=== PATIENT | male | born 1940 | race Caucasian/White ===

== ENCOUNTER 2017-01-02 06:19 | Day surgery (SDC) | payer OTHER ==
[2016-12-31 14:54] LABS: HEMOGLOBIN 12.2 g/dL (14.0-18.0); MCH 27.5 PG (27-31); MCHC 32.1 g/dL (33-37); MCV 85.8 FL (81-99); MPV 9.1 FL (7.4-10.4); RBC 4.43 XMIL (4.7-6.1)
[2016-12-31 15:32] LABS: CALCIUM 9.6 mg/dL (8.8-10.2); POTASSIUM 4.6 mmol/L (3.5-5.1)
--- NOTE | 2016-12-31 15:37 | EKG Report ---
Test Performed on : 12/31/2016 2:45:15 PM Test Reason : PAT Blood Pressure : / mmHG Vent. Rate : 072 BPM Atrial Rate : 072 BPM P-R Int : 168 ms QRS Dur : 104 ms QT Int : 388 ms P-R-T Axes : 035 -32 015 degrees QTc Int : 424 ms Normal sinus rhythm. Left axis deviation Cannot rule out Anterior infarct , age undetermined Abnormal ECG When compared with ECG of 14-APR-2014 19:17, No significant change was found Confirmed by Maryanne GRIER, Wilfredo Orosco ([id number]) on 12/31/2016 5:25:06 PM
--- NOTE | 2017-01-01 19:07 | HISTORY AND PHYSICAL ---
CHIEF COMPLAINT: Elevated PSA. HISTORY OF PRESENT ILLNESS: This 76-year-old male has a history of elevated PSA to 4.69 on routine physical. A recheck was 4.53 with a 4K score of 19%. This is intermediate risk for prostate cancer. This has never occurred before. He has never had a prostate biopsy before. An attempt was made to do a prostate biopsy in the office but he could not tolerate the probe going through his rectum. He denies any history of hematuria or problems with urinary tract infections. He passed a kidney stone about 20 years ago. PAST MEDICAL HISTORY: Diabetes, hypertension, elevated cholesterol. CURRENT MEDICATIONS: Flomax 0.4 mg a day. Losartan 25 mg a day. Metformin 1000 mg every night. Pravastatin 20 mg a day. PAST SURGICAL HISTORY: Appendectomy, traumatic removal of the index finger, cholecystectomy. SOCIAL HISTORY: He denies current tobacco or alcohol use. ALLERGIES: He is allergic to codeine REVIEW OF SYSTEMS: Usually in good health. He denies any problems with chest pains, pulmonary or bowel problems. PHYSICAL EXAMINATION: GENERAL: A normally developed, mildly obese, age apparent, white male, oriented x3 and cooperative. HEENT: Normal for age. LUNGS: Clear. CARDIOVASCULAR: Regular rate and rhythm. ABDOMEN: Protuberant, soft, nontender. No hepatosplenomegaly or masses. Normal bowel sounds. : Uncircumcised male. Foreskin retracts. Meatus is normal. Both testes are down and palpably normal. There are no inguinal hernias. RECTAL: Normal sphincter tone. However the sphincter area is very tight. Prostate about 40-50 g, smooth, and symmetric. No nodules. EXTREMITIES: No clubbing, cyanosis, or edema. NEURO: No focal deficits. IMPRESSION: Elevated PSA with intermediate risk on his 4K score. PLAN: Transrectal prostate ultrasound and biopsies. The planned procedure, benefits versus risks, possible complications, including, but not limited to, bleeding, infection, not finding cancer, finding cancer with need for further treatment was discussed. He seems to understand and desires to proceed.
[2017-01-02] MEDS ORDERED: GENTAMICIN 100 MG/NS 100 ML ONE (06:33)
[2017-01-02] MEDS ORDERED: LR 1,000 ML ONE (06:33)
[2017-01-02] MEDS ORDERED: KEFZOL 2 GM/D5W 50 ML ONE (06:33)
[2017-01-02] MEDS ORDERED: DIPRIVAN 1% ONE (08:26)
--- NOTE | 2017-01-02 09:02 | OPERATIVE NOTE ---
PROCEDURE DATE: 01/02/2017 SURGEON: Juvenal Tavarez MD. PREOPERATIVE DIAGNOSIS: Elevated prostate-specific antigen and elevated Forte score. POSTOPERATIVE DIAGNOSIS: Elevated prostate-specific antigen and elevated Forte score. PROCEDURE PERFORMED: Transrectal prostate ultrasound and biopsies. ANESTHESIA: IV sedation with monitored anesthesia care. FINDINGS: Prostate volume 101 mL. Hyperechoic areas in the periurethral areas, consistent with periurethral stones. There was a hyperechoic area in the left base. Hypoechoic areas were in the left and right apex, left mid and left base. Capsular integrity was normal. There was no asymmetry. INDICATIONS FOR PROCEDURE: This 76-year-old male was noted to have an elevated PSA and intermediate risk of prostate cancer on his Forte score. DESCRIPTION OF PROCEDURE: After informed consent was obtained from the patient and him receiving IV antibiotics, he was taken to the main OR and placed in the supine position. IV sedation was achieved. He was then placed in the lateral decubitus position with the left side up. The [employer] Alpha 10 ProSound ultrasound machine with the 7.5 megahertz probe was used to image the prostate in real time. Findings are as noted above. The Biopty needle gun with an 18-gauge Rich-Cut needle was used to biopsy the prostate. Biopsies were taken at the right base at the extreme lateral, mid, and periurethral areas. Biopsies were then taken in the right mid prostate at the extreme lateral, mid, and periurethral areas. Biopsies were then taken at the right apex at the extreme lateral, mid, and periurethral areas. Left side was accomplished similarly. He tolerated the procedure well. ESTIMATED BLOOD LOSS: Zero. DISPOSITION: He tolerated the procedure well and was taken back to outpatient surgery in good condition.
[2017-01-02 09:50] VITALS: BP 179/88
== END 2017-01-02 09:52 | disposition home or self-care (01) ==
LOC: PAT 06:19
PROVIDERS: ATTEND Urology
DX: R97.20 Elevated prostate specific antigen [PSA] (principal); E11.9 Type 2 diabetes mellitus without complications; I10 Essential (primary) hypertension; E78.00 Pure hypercholesterolemia, unspecified
CPT/HCPCS: 76942; 80048; 82948; 85027; 88305; 93005; 93010; J0690; J1580; J7120